=== PATIENT | female | born 1985 | race Caucasian/White ===

== ENCOUNTER 2018-07-11 08:52 | Emergency (ER) | payer OTHER ==
[~2018-07-11] VITALS: Ht 165.1 cm; Wt 96.6 kg
[2018-07-11 08:59] VITALS: Ht 165.1 cm; Wt 96.6 kg
[2018-07-11 10:21] VITALS: BP 123/75
== END 2018-07-11 11:30 | disposition home or self-care (01) ==
LOC: ED 08:52
DX: J20.9 Acute bronchitis, unspecified (principal); Z90.49 Acquired absence of other specified parts of digestive tract; N83.209 Unspecified ovarian cyst, unspecified side